=== PATIENT | male | born 1940 | race Caucasian/White ===

== ENCOUNTER → 2016-11-29 13:43 | Outpatient (CLI) | payer MEDICARE, OTHER ==
[2015-09-23 08:52] VITALS: BMI 24.8
[~2016-11-29 13:43] MED LIST: CATAPRES0.2 MG PO; CELEXA20 MG PO; DURAGESIC1 PATCH .3 TRANSDERM; K-DUR20 MEQ PO; LASIX20 MG PO; NIFEDIPINE ER60 MG PO; PULMICORT0.25 MG/1 INH; ZYLOPRIM300 MG PO
== END | disposition home or self-care (01) ==
LOC: D.RAD 13:43
DX: Z85.048 Personal history of other malignant neoplasm of rectum, rectosigmoid junction, and anus (principal)